=== PATIENT | male | born 1975 | race Caucasian/White ===

== ENCOUNTER 2017-11-09 19:42 | Emergency (ER) | payer BC ==
--- NOTE | 2017-11-09 20:08 | Emergency Department Record ---
History of Present Illness - General Chief Complaint: Palpitations Stated Complaint: HEART FLUTTERING Time Seen by Provider: 11/09/17 19:48 Source: Patient, Family Mode of Arrival: Ambulatory Limitations: No limitations - History of Present Illness Initial Comments: 42 yo male presents after having a period at work of feeling very anxious and weak that came on suddenly. He is a clamp truck driver. No past medical history and no current medications. He denies any chest pain or shortness of breath. No pain, no leg pain, no swelling. No exertion symptoms. He did report he recently travelled by plane to [place]. He had a few episodes there that were mild that caused an anxiety feeling while in [place] and upon return. No nausea , vomiting, or diarrhea. Last DOT exam was one year ago. He states he had mild elevated blood pressure at that time that did not require treatment. No family history of SCD or CAD in the immediate family. He is not a smoker. MD Complaint: Palpitations (Anxious feeling) Onset/Timin -: Days(s) Context: Occurred during rest Associated Symptoms: Denies other symptoms, Other - Related Data Home Medications Medication Instructions Recorded Confirmed Last Taken Pressure-Low Vitamin 1 tab PO DAILY 11/09/17 11/09/17 Unknown Allergies Allergy/AdvReac Type Severity Reaction Status Date / Time phenobarbital Allergy PT UNSURE Verified 11/09/17 20:10 OF REACTION Travel Screening - Travel/Exposure Within Last 30 Days Have you traveled within the last 30 days?: No - Travel/Exposure Within Last Year Have you traveled outside the [place] in the last year?: No - Additonal Travel Details Have you been exposed to anyone with a communicable illness?: No - Travel Symptoms Symptom Screening: None Review of Systems Constitutional: Denies: Chills, Fever, Malaise, Weakness Eyes: Denies: Eye discharge ENT: Denies: Congestion, Throat pain Respiratory: Denies: Cough, Dyspnea, Hemoptysis, Stridor, Wheezes Cardiovascular: Reports: Palpitations (feeling of heart racing, resolved). Denies: Arrhythmia, Chest pain, Dyspnea on exertion, Edema, Syncope Endocrine: Denies: Fatigue Gastrointestinal: Denies: Abdominal pain, Diarrhea, Nausea, Vomiting Genitourinary: Denies: Dysuria, Frequency, Hematuria Musculoskeletal: Denies: Arthralgia, Back pain, Joint swelling, Myalgia Skin: Denies: Bruising, Change in color, Rash Neurological: Denies: Confusion, Headache, Numbness, Tingling, Vertigo, Weakness Psychiatric: Reports: As per HPI, Anxiety. Denies: Depression Hematological/Lymphatic: Denies: Anemia, Blood Clots, Easy bleeding, Easy bruising, Swollen glands Past Medical History - SOCIAL HISTORY Smoking Status: Never smoker Alcohol Use: None Drug Use: None - RESPIRATORY Hx Respiratory Disorders: No - CARDIOVASCULAR Hx Cardio Disorders: No - NEURO Hx Neuro Disorders: No - GI Hx GI Disorders: No - Hx Genitourinary Disorders: No - ENDOCRINE Hx Endocrine Disorders: No - MUSCULOSKELETAL Hx Musculoskeletal Disorders: No - PSYCH Hx Psych Problems: No - HEMATOLOGY/ONCOLOGY Hx Hematology/Oncology Disorders: No Family Medical History Any Significant Family History?: No Physical Exam - General General Appearance: Alert, Oriented x3, Cooperative, No acute distress Limitations: No limitations - Head Head exam: Normal inspection. negative: Atraumatic, Normocephalic - Eye Eye exam: Normal appearance, PERRL. negative: Conjunctival injection, Scleral icterus - ENT ENT exam: Normal exam, Mucous membranes moist Ear exam: Normal external inspection Nasal Exam: Normal inspection Mouth exam: Normal external inspection Teeth exam: Normal inspection Throat exam: Normal inspection. negative: Tonsillar erythema, Tonsillar exudate - Neck Neck exam: Normal inspection, Full ROM. negative: Lymphadenopathy, Tenderness, Thyromegaly - Respiratory Respiratory exam: Normal lung sounds bilaterally. negative: Respiratory distress, Rhonchi, Stridor, Wheezes - Cardiovascular Cardiovascular Exam: Regular rate, Normal rhythm, Normal heart sounds Peripheral Pulses: 2+: Radial (R), Radial (L) - GI/Abdominal GI/Abdominal exam: Soft. negative: Distended, Guarding, Rebound, Rigid, Tenderness - Rectal Rectal exam: Deferred - exam: Deferred - Extremities Extremities exam: Normal inspection, Full ROM, Normal capillary refill. negative: Pedal edema, Tenderness - Back Back exam: Reports: Normal inspection, Full ROM. Denies: CVA tenderness (R), CVA tenderness (L), Muscle spasm, Rash noted, Tenderness - Neurological Neurological exam: Alert, Normal gait, Oriented X3, Reflexes normal - Psychiatric Psychiatric exam: Normal affect, Normal mood. negative: Agitated, Anxious - Skin Skin exam: Dry, Intact, Normal color, Warm Course Vital Signs 11/09/17 19:48 Temperature 97.6 F Pulse Rate 93 H Respiratory 20 Rate Blood Pressure 165/111 Pulse Ox 98 - Reevaluation(s) Reevaluation #1: EKG NSR rate is 91, intervals [id number], axis normal to left, ST no acute changes. No old. 11/09/17 20:07 11/09/17 20:38 The labs were reviewed No acute changes on the CBC,CMP,D-dimer,Troponin We discussed the results The patient is well appearing and asymptomatic. He had very atypical symptoms without any immediate risk factors for CAD,SCD. No history of chest pain, shortness of breath. I recommend follow up with the FP clinic to establish a new PCP We discussed reasons for immediate return to the ED. 11/09/17 20:50 Medical Decision Making - Lab Data Result diagrams: 11/09/17 20:00 11/09/17 20:00 Disposition Disposition: Discharge Clinical Impression: Palpitations Disposition: Home, Self-Care Condition: (1) Good Instructions: Heart Palpitations (ED) Additional Instructions: Immediate return to the ED if you have any return of symptoms Off work tomorrow Call the [facility] to establish a new family doctor. Referrals: PIETER MARTINEZ [MEDICAL DOCTOR] - Forms: Patient Portal Access Time of Disposition: 20:40 Quality - Quality Measures Quality Measures: N/A - Blood Pressure Screening Does Patient Have Any of the Following: No Blood Pressure Classification: Hypertensive Reading Systolic Measurement: 165 Diastolic Measurement: 111 Screening for High Blood Pressure: < Pre-Hypertensive BP, F/U Documented > [ [id number]] Pre-Hypertensive Follow-up Interventions: Referral to alternative/primary care provider.
[2017-11-09 20:09] LABS: BASO % 0.3 % (0-6); EOS % 1.6 % (0-6); GRAN % 49.9 % (47-80); HEMATOCRIT 43.6 % (42.0-52.0); HEMOGLOBIN 15.5 gm/dl (14.0-18.0); LYMPH % 35.2 % (16-45); MEAN CELL VOLUME 86.7 fl (81-97); MEAN CORPUSCULAR HEMOGLOBIN 30.8 pg (27-33); MEAN CORPUSCULAR HGB CONC 35.6 g/dl (32-36); MEAN PLATELET VOLUME 8.7 fl (7.4-10.4); PLATELET COUNT 224 K/uL (130-400); RED BLOOD COUNT 5.03 M/uL (4.40-5.70); RED CELL DISTRIBUTION WIDTH 12.7 % (11.5-14.5); WHITE BLOOD COUNT W/O DIFF 7.6 K/uL (4.2-12.2)
[2017-11-09 20:19] LABS: BLOOD UREA NITROGEN 14 mg/dL (6-20); CREATININE 0.8 mg/dL (0.7-1.2); EST GLOMERULAR FILTRATION RATE > 60 mL/min
[2017-11-09 20:20] LABS: TOTAL PROTEIN 7.9 g/dL (6.6-8.7)
[2017-11-09 20:22] LABS: GLUCOSE,RANDOM 113 mg/dL (74-109)
[2017-11-09 20:24] LABS: ALT/SGPT 46 U/L (<41); AST/SGOT 23 U/L (10.0-50.0)
[2017-11-09 20:25] LABS: ALB/GLOB RATIO 1.7 (1.1-1.8); ALKALINE PHOSPHATASE 63 U/L (40-129)
[2017-11-09 20:35] LABS: THYROID STIMULATING HORMONE 4.56 uIU/mL (0.270-4.20)
== END 2017-11-09 21:04 | disposition home or self-care (01) ==
LOC: ER 19:42
DX: R00.2 Palpitations (principal); R53.1 Weakness
CPT/HCPCS: 80053; 84443; 84484; 85025; 85379; 93005; 93010; 99284